=== PATIENT | female | born 1975 | race American Indian/Alaskan Native ===

== ENCOUNTER 2019-07-06 09:42 | Emergency (ER) | payer SELFPAY ==
[2019-07-06 10:13] VITALS: BP 157/81
[2019-07-06] MEDS ORDERED: IBUPROFEN 600 MG TAB PO ONE (10:17)
--- NOTE | 2019-07-06 10:19 | Event Note ---
ED Screening Note Date of service: 07/06/19 Time: 10:18 ED Screening Note: 44 y/o female comes in for left joot pain and swelling s/p missed a step. This initial assessment/diagnostic orders/clinical plan/treatment(s) is/are subject to change based on patients health status, clinical progression and re- assessment by fellow clinical providers in the ED. Further treatment and workup at subsequent clinical providers discretion. Patient/guardian urged not to elope from the ED as their condition may be serious if not clinically assessed and managed. Initial orders include:
[2019-07-06] MEDS ORDERED: oxyCODONE /ACETAMINOPHEN 5-325MG TAB PO STA (10:52)
--- NOTE | 2019-07-06 10:52 | Emergency Department Report ---
ED Lower Extremity HPI - General Chief Complaint: Extremity Injury, Lower Stated Complaint: LT FOOT PAIN Time Seen by Provider: 07/06/19 10:15 Source: patient Mode of arrival: Ambulatory Limitations: No Limitations - Related Data Previous Rx's Medication Instructions Recorded Last Taken Type oxyCODONE /ACETAMINOPHEN [Percocet 1 tab PO Q6HR PRN #14 tablet 07/06/19 Unknown Rx 5/325] Allergies Allergy/AdvReac Type Severity Reaction Status Date / Time IVP DYE Allergy Swelling Uncoded 07/06/19 09:44 ED Review of Systems ROS: Stated complaint: LT FOOT PAIN Other details as noted in HPI Comment: All other systems reviewed and negative ED Past Medical Hx - Past Medical History Hx Hypertension: Yes Hx Arthritis: Yes (RA) Additional medical history: FIBROMYALIA - Surgical History Additional Surgical History: C SEC X3 LEFT ELBOW X2 LEFT KNEE X1 - Social History Smoking Status: Never Smoker Substance Use Type: None - Medications Home Medications: Home Medications Medication Instructions Recorded Confirmed Last Taken Type oxyCODONE /ACETAMINOPHEN [Percocet 1 tab PO Q6HR PRN #14 tablet 07/06/19 Unknown Rx 5/325] ED Physical Exam - General Limitations: No Limitations General appearance: alert, in no apparent distress - Head Head exam: Present: atraumatic, normocephalic - Eye Eye exam: Present: normal appearance, PERRL, EOMI Pupils: Present: normal accommodation - ENT ENT exam: Present: normal exam, normal orophraynx, mucous membranes moist - Neck Neck exam: Present: normal inspection - Respiratory Respiratory exam: Present: normal lung sounds bilaterally. Absent: respiratory distress, wheezes, rales, chest wall tenderness, accessory muscle use - Cardiovascular Cardiovascular Exam: Present: regular rate, normal rhythm. Absent: systolic murmur, diastolic murmur, rubs, gallop - GI/Abdominal GI/Abdominal exam: Present: soft, normal bowel sounds. Absent: distended, tenderness, guarding, hyperactive bowel sounds, hypoactive bowel sounds - Extremities Exam Extremities exam: Present: normal inspection - Expanded Lower Extremity Exam Left Lower Leg exam: Present: normal inspection Ankle exam: Present: normal inspection Foot/Toe exam: Present: tenderness, swelling, ecchymosis. Absent: erythema, puncture wound, foreign body, calcaneal tenderness, nail avulsion Neuro vascular tendon exam: Present: pulse deficit. Absent: sensory deficit, tendon deficit, extremity cold to touch 1 - Pain swelling ecchymosis. Moderate to severe tenderness with palpation - Back Exam Back exam: Present: normal inspection, full ROM - Neurological Exam Neurological exam: Present: alert, oriented X3, CN II-XII intact, normal gait - Psychiatric Psychiatric exam: Present: normal affect, normal mood. Absent: anxious, manic, homicidal ideation, suicidal ideation - Skin Skin exam: Present: warm, dry, intact, normal color. Absent: rash, cyanosis, diaphoretic, erythema, petechiae, pallor ED Course Vital Signs 07/06/19 10:11 Temperature 97.9 F Pulse Rate 78 Respiratory 18 Rate Blood Pressure 157/81 O2 Sat by Pulse 100 Oximetry Critical care attestation.: If time is entered above; I have spent that time in minutes in the direct care of this critically ill patient, excluding procedure time. ED Disposition Clinical Impression: Fracture of metatarsal of left foot, closed Disposition: DC-01 TO HOME OR SELFCARE Is pt being admited?: No Does the pt Need Aspirin: No Condition: Stable Instructions: Foot Fracture in Adults (ED) Additional Instructions: Please be sure to follow-up with the orthopedic or the supervisor communications and signals for definitive treatment of your foot fracture. As we discussed this will require splinting and that is likely may require more involved treatment intervention not excluding surgery Prescriptions: oxyCODONE /ACETAMINOPHEN [Percocet 5/325] 1 tab PO Q6HR PRN #14 tablet PRN Reason: Pain Referrals: MAZIN WRIGHT MD [Staff Physician] - 2-3 Days (Please be sure to follow-up with orthopedic doctor for treatment of your foot fracture) JACK PAINTER DPM [Staff Physician] - 3-5 Days SIERRA GROVE MD [Staff Physician] - 3-5 Days PÉREZ HENLEY DPM [Referring] - 3-5 Days
--- NOTE | 2019-07-06 11:00 | XRay Report ---
LEFT FOOT 3 VIEWS INDICATION / CLINICAL INFORMATION: foot pain and swelling COMPARISON: None available. FINDINGS: BONES / JOINT(S): Spiral fractures involving the mid/distal shafts of the fourth and fifth metatarsal s. No significant arthritis. SOFT TISSUES: No significant abnormality. ADDITIONAL FINDINGS: None. Signer Name: Zenon Ponce MD Signed: 07/06/2019 10:55 AM Workstation Name: [id number]
== END 2019-07-06 10:43 | disposition home or self-care (01) ==
LOC: ED 09:42
DX: S92.302A Fracture of unspecified metatarsal bone(s), left foot, initial encounter for closed fracture (principal); I10 Essential (primary) hypertension; M19.90 Unspecified osteoarthritis, unspecified site; Z79.899 Other long term (current) drug therapy; Z91.041 Radiographic dye allergy status; X58.XXXA Exposure to other specified factors, initial encounter; Y93.89 Activity, other specified; Y92.89 Other specified places as the place of occurrence of the external cause; Y99.8 Other external cause status